=== PATIENT | male | born 1975 | race African-American/Black ===

== ENCOUNTER 2020-03-01 11:29 | Emergency (ER) | payer OTHER ==
[~2020-03-01] VITALS: Ht 165.1 cm; Wt 89.8 kg
--- NOTE | 2020-03-01 11:40 | NUR ---
ED Nurse Note: Pt walked into ED for laceration L wrist today at 1030. Pt has small amount of bleeding serosanguinous. Pt is alert and ox4, ambulatory. Pain on L wrist is 7/10. Pt cap refill less than 3 sec L hand.
[2020-03-01 11:51] VITALS: BP 130/82
[2020-03-01] MEDS ORDERED: Tetanus/Diptheria/Pertussis IM ONE (12:15)
--- NOTE | 2020-03-01 13:29 | Emergency Room Report ---
History of Present Illness General Chief Complaint: Upper Extremity Injury Source: Patient Present Illness HPI 44-year-old male with no significant past medical history here due to laceration left wrist that happened prior to arrival. Patient reports that he was working and he accidentally cut himself with a metal. 2 cm laceration into the dermis noted on volar side of left wrist. Patient has range of motion, and is neurovascularly intact. No tendon involvement noted. Patient denies any numbness. [id number] with tetanus shot. Rates the pain 5 out of 10 without radiation. Denies all other injuries. Denies chest pain, shortness of breath, headache and dizziness. Is not taking any blood thinners. Denies fever and chills. Allergies: Coded Allergies: No Known Allergies (Unverified , 03/01/20) COVID-19 Screening Contact w/high risk pt: No Recent Travel to affected area: No Experienced COVID-19 symptoms?: No COVID-19 Testing performed SCHEDULE MANAGER: No Patient History Past Medical History: see triage record Past Surgical History: none Pertinent Family History: none Immunizations: other - Tdap given today Reviewed Nursing Documentation: PMH: Agreed; PSxH: Agreed Nursing Documentation-PMH Past Medical History: No Stated History Review of Systems All Other Systems: negative except mentioned in HPI Physical Exam Vital Signs Date Time Temp Pulse Resp B/P (MAP) Pulse Ox O2 Delivery O2 Flow Rate FiO2 03/01/20 11:31 98.4 75 20 121/86 (98) 96 Room Air Sp02 EP Interpretation: reviewed, normal General Appearance: no apparent distress, alert, GCS 15, non-toxic Head: normocephalic, atraumatic Eyes: bilateral eye normal inspection, bilateral eye PERRL ENT: hearing grossly normal, normal pharynx, no angioedema, normal voice Neck: full range of motion, supple, thyroid normal, supple/symm/no masses Respiratory: chest non-tender, lungs clear, normal breath sounds, no rhonchi, no respiratory distress, no retraction, no accessory muscle use, speaking full sentences Cardiovascular #1: regular rate, rhythm, no edema, no murmur Cardiovascular #2: 2+ radial (R), 2+ radial (L) Gastrointestinal: normal bowel sounds, non tender, soft, non-distended, no guarding, no rebound Rectal: deferred Genitourinary: no CVA tenderness Musculoskeletal: back normal, normal range of motion, no calf tenderness, gait/ station normal, non-tender, other - Left wrist laceration without tendon involvement Neurologic: alert, motor strength/tone normal, oriented x3, sensory intact, responsive, speech normal Psychiatric: judgement/insight normal, memory normal, mood/affect normal, no suicidal/homicidal ideation Skin: laceration - Deep laceration to the dermis about 2 cm volar side of left wrist Lymphatic: no adenopathy Procedures Laceration/Wound Repair Laceration/Wound Repair : Consent: Verbal Wound Location: upper extremity - Left wrist volar Wound's Depth, Shape: into muscle Wound Length (cm): 2 Wound Explored: clean Irrigated w/ Saline (ccs): 50 Anesthesia: Lidocaine w/ Epi Volume Anesthetic (ccs): 7 Wound Repaired With: sutures Suture Size/Type: 4:0, proline Number of Sutures: 8 Layer Closure?: Yes Sterile Dressing Applied?: Yes Splint Applied?: No Sling Applied?: No Patient Tolerated: Well Complications: None Medical Decision Making PA Attestation All diagnoses and treatment plans were reviewed and discussed with my supervising physician Dr. Randall Diagnostic Impression: Primary Impression: Laceration of wrist ER Course 44-year-old male with no significant past medical history here due to laceration left wrist that happened prior to arrival. Patient reports that he was working and he accidentally cut himself with a metal. 2 cm laceration into the dermis noted on volar side of left wrist. Patient has range of motion, and is neurovascularly intact. No tendon involvement noted. Patient denies any numbness. [id number] with tetanus shot. Rates the pain 5 out of 10 without radiation. Denies all other injuries. Denies chest pain, shortness of breath, headache and dizziness. Is not taking any blood thinners. Denies fever and chills. Ddx considered but are not limited to : Superficial laceration, deep laceration , tendon involvement with laceration, laceration with foreign body Vital signs: are WNL, pt. is afebrile H&PE are most consistent with: Laceration of wrist without foreign body ORDERS: Left wrist x-ray, Keflex, Motrin, mupirocin cream ED INTERVENTIONS: Wound closure and dressed, Tdap DISCHARGE: At this time pt. is stable for d/c to home. Will provide printed patient care instructions, and any necessary prescriptions. Care plan and follow up instructions have been discussed with the patient prior to discharge. Sutures to be removed in 7 to 10 days, take medication as directed, follow primary care provider, if worsening symptoms return to the emergency room Other X-Ray Diagnostic Results Other X-Ray Diagnostic Results : X-Ray ordered: Left wrist # of Views/Limited Vs Complete: 3 View Indication: Pain EP Interpretation: Yes DANNY Xray: Interpretation reviewed, by supervising MD, and agrees with findings. Interpretation: no dislocation, no soft tissue swelling, no fractures, other - No foreign body Impression: No acute disease Electronically Signed by: Chayito Schwartz PA-C Last Vital Signs Date Time Temp Pulse Resp B/P (MAP) Pulse Ox O2 Delivery O2 Flow Rate FiO2 03/01/20 11:51 98.4 87 16 130/82 99 Room Air Disposition: HOME, SELF-CARE Condition: Stable Scripts Mupirocin* (MUPIROCIN*) 22 Gm Oint...g. 1 APPLIC TOPIC THREE TIMES A DAY, #22 GM Prov: Chayito Frias 03/01/20 Ibuprofen (Ibu) 800 Mg Tablet 800 MG PO TID, #30 TAB Prov: Chayito Frias 03/01/20 Cephalexin* (KEFLEX*) 500 Mg Capsule 500 MG ORAL EVERY 6 HOURS, #28 CAP Prov: Chayito Frias 03/01/20 Patient Instructions: Laceration Care, Adult, [id number] Additional Instructions: Take medication as directed, follow-up with your primary care provider, if worsening symptoms return to emergency room. Sutures to be removed in 7 to 10 days Chayito Frias Mar 01, 2020 13:29
[2020-03-01] MEDS ORDERED: IBU800 MG PO (13:30)
[2020-03-01] MEDS ORDERED: MUPIROCIN22 GM TOPIC (13:30)
[2020-03-01] MEDS ORDERED: CEPHALEXIN500 MG ORAL (13:30)
[2020-03-01 13:35] VITALS: BP 124/79
--- NOTE | 2020-03-01 13:36 | NUR ---
ER DISCHARGE NOTE: Patient is cleared to be discharged per ERMD, pt is aox4, on room air, with stable vital signs. pt was given dc and prescription instructions, pt was able to verbalize understanding, pt id band removed. pt is able to ambulate with steady gait. pt took all belongings.
--- NOTE | 2020-03-01 17:17 | Diagnostic Imaging Report ---
Clinical Indication:Trauma, laceration Technique: 3 views of the left wrist Comparison: None Findings: There is some anterolateral soft tissue irregularity. No radiopaque foreign body demonstrated. No bony disruption. No acute fractures or dislocations. The joint spaces are preserved Impression: Evidence of soft tissue injury. No radiopaque foreign body No acute bony trauma
== END 2020-03-01 13:55 | disposition home or self-care (01) ==
LOC: EMR 13:28
DX: S61.512A Laceration without foreign body of left wrist, initial encounter (principal); W26.9XXA Contact with unspecified sharp object(s), initial encounter; Y92.9 Unspecified place or not applicable; Y99.0 Civilian activity done for income or pay; Z23 Encounter for immunization
CPT/HCPCS: 90471; 90715; 99283